=== PATIENT | male | born 1995 | race Caucasian/White ===

== ENCOUNTER 2021-07-15 19:50 | Emergency (ER) | payer OTHER ==
[2021-07-15 19:56] VITALS: BP 123/70; PULSE 66; TEMP 97.7; BMI 25.8
== END 2021-07-15 20:31 | disposition home or self-care (01) ==
LOC: FER 19:50
PROC: 0HQ1XZZ Repair Face Skin, External Approach (ICD-10-PCS; principal; 2021-07-15)
DX: S01.01XA Laceration without foreign body of scalp, initial encounter (principal); W22.8XXA Striking against or struck by other objects, initial encounter
CPT/HCPCS: 99282-25